=== PATIENT | female | born 1985 | race Two or more races ===

== ENCOUNTER 2018-02-03 01:41 | Emergency (ER) | payer OTHER ==
[~2018-02-03] VITALS: Ht 167.6 cm; Wt 60.0 kg
[~2018-02-03 01:41] MED LIST: IBUP-1222 PO; PREN1TAB52 PO
[2018-02-03] MEDS ORDERED: ONDANSETRON 2MG/ML, 2ML IVPush ONE (02:30)
[2018-02-03] MEDS ORDERED: SODIUM CHLORIDE FLUSH 10ML SYR IVF ONE (02:30)
[2018-02-03] MEDS ORDERED: SODIUM CHLORIDE 0.9% 1,000ML IVBOLUS ONE (02:30)
[2018-02-03 03:06] VITALS: BP 103/58
== END 2018-02-03 05:13 | disposition home or self-care (01) ==
LOC: ED 05:00
DX: F10.120 Alcohol abuse with intoxication, uncomplicated (principal)
CPT/HCPCS: 36415; 80307; 99283